=== PATIENT | female | born 1965 | race Caucasian/White ===

== ENCOUNTER 2019-06-29 07:18 | Day surgery (SDC) | payer OTHER ==
[~2019-06-29 07:18] MED LIST: Lactated Ringers 1,000 ML IV SCH; Sodium Chloride 0.9% 10 ML Syringe FLUSH PRN
[2019-06-29] MEDS ORDERED: Midazolam 1 MG/ML 2 ML SDV IV ONE (07:19)
[2019-06-29] MEDS ORDERED: Promethazine 25 MG/ML SDV ONE (07:19)
[2019-06-29] MEDS ORDERED: Lidocaine 1% with EPINEPHrine 1:100,000 20 ML MDV ONE ×2 (07:19→11:35)
[2019-06-29] MEDS ORDERED: Ondansetron 4 MG/2 ML SDV IV ONE (07:19)
[2019-06-29] MEDS ORDERED: Propofol 200 MG/20 ML SDV IV ONE (07:19)
[2019-06-29] MEDS ORDERED: fentaNYL 250 MCG/5 ML SDV IV ONE (07:19)
[2019-06-29] MEDS ORDERED: Succinylcholine 200 MG/10 ML MDV IV ONE (07:19)
[2019-06-29] MEDS ORDERED: Ketorolac 30 MG/ML SDV IVPUSH ONE (07:19)
[2019-06-29] MEDS ORDERED: Dexamethasone 4 MG/ML SDV IV ONE (07:19)
[2019-06-29] MEDS ORDERED: Clindamycin Phosphate 600 MG in Sodium Chloride 0.9% 100 ML IV ONE (11:07)
[2019-06-29] MEDS ORDERED: Lidocaine 1% with EPINEPHrine 1:100,000 30 ML MDV INJECT ONE ×2 (11:45→11:50)
[2019-06-29] MEDS ORDERED: Morphine 2 MG/ML Syringe IVPUSH PRN (13:17)
[2019-06-29] MEDS ORDERED: Sodium Chloride 0.9% 10 ML Syringe FLUSH PRN (13:20)
--- NOTE | 2019-06-29 16:49 | OR ---
DATE: 06/29/2019 PREOPERATIVE DIAGNOSIS: Umbilical hernia. POSTOPERATIVE DIAGNOSIS: Umbilical hernia. PROCEDURE: Open repair of umbilical hernia. ANESTHESIA: General. ESTIMATED BLOOD LOSS: Minimum. SPECIMEN: None. INDICATION FOR PROCEDURE: This 53-year-old female has symptomatic umbilical hernia. This is a quite large one on CT scan and contains preperitoneal and abdominal omental fat. No intestine is present. PROCEDURE IN DETAIL: After adequate preparation, a longitudinal incision was made infraumbilically and this was taken down through the subcutaneous tissue to expose the hernia sac. This was dissected free from the surrounding structures and the umbilical skin was peeled off the top end of the hernia sac. The margins of the fascia were incised so that the hernia could be reduced and then the defect, which measured about 2 to 2.5 cm, was closed using interrupted #1 Prolene sutures and this was reinforced using a double-stranded 0 PDS suture. The subcutaneous tissue was closed using 2-0 Vicryl suture and Monocryl was used for the skin. [facility] /[id number]
[2019-06-29] MEDS: Acetaminophen/oxyCODONE 325-5 MG Tab PO PRN (18:11)
[2019-06-30] MEDS: Acetaminophen/oxyCODONE 325-5 MG Tab PO PRN (07:12)
[2019-06-30 07:54] VITALS: BP 138/80; PULSE 81
--- NOTE | 2019-06-30 09:19 | PCM.SN ---
- Free Text/Narrative Note: Stable POD #1. Minimal pain. Wound with some redness\blisters from steri- strips. Will remove strips. PO tolerated OK. Ambulating without help. Can DC today. FU PCP or my clinic Aug 02 if needed. Percocet (#20) given for pain. Will need to be off work until Jul 19 otherwise no restrictions.
== END 2019-06-30 10:19 | disposition home or self-care (01) ==
LOC: DL.SDS 07:18 → EDSTATUS 09:00 → DL.MS 13:07 → DL.SDS 06-30 10:19
PROVIDERS: ATTEND Surgery
DX: K42.9 Umbilical hernia without obstruction or gangrene (principal); G40.909 Epilepsy, unspecified, not intractable, without status epilepticus; E66.01 Morbid (severe) obesity due to excess calories; Z68.43 Body mass index [BMI] 50.0-59.9, adult; Z88.0 Allergy status to penicillin; Z79.899 Other long term (current) drug therapy
CPT/HCPCS: 49585; 81025; A9270; J0330; J1100; J1885; J2250; J2405; J2550; J2704; J3010; J3490; J7050; J7120

== ENCOUNTER 2020-08-22 10:12 | Emergency (ER) | payer OTHER ==
[2020-08-22] MEDS ORDERED: Sodium Chloride 0.9% 10 ML Syringe FLUSH PRN (10:17)
--- NOTE | 2020-08-22 10:17 | EDM.PDOC ---
ED HPI GENERAL MEDICAL PROBLEM - General Chief Complaint: Chest Pain Stated Complaint: CHEST PAINS Time Seen by Provider: 08/22/20 10:16 Source of Information: Reports: Patient, Old Records, RN, RN Notes Reviewed History Limitations: Reports: No Limitations - History of Present Illness INITIAL COMMENTS - FREE TEXT/NARRATIVE: Pt presents to ER from home by POV with c/o waking this morning to find that she had chest pain. Pt reports an upper and left sided chest pressure with some aching, and an occasional sharper pain. She also reports feeling the need to belch to relieve the chest symptoms, and reports having a lot of stomach gas. Denies fever, chills, N/V, abdominal pain, back pain, radiating pain, palpitations, edema, cough, or shortness of breath. Pt was worried because she had the same symptoms in 06/2020 when she had a STEMI. Onset: Today Onset Date: 08/22/20 Onset Time: 08:00 (approx. time per pt.) Duration: Waxing/Waning Location: Reports: Chest Quality: Reports: Ache, Pressure, Sharp Severity: Moderate Improves with: Reports: None Worsens with: Reports: None Associated Symptoms: Reports: No Other Symptoms Left Chest Pain Score (Numeric/FACES): 1 - Related Data Allergies Allergy/AdvReac Type Severity Reaction Status Date / Time Penicillins Allergy Rash Verified 08/22/20 10:22 Home Meds: Home Meds Escitalopram [Lexapro] 20 mg PO DAILY 06/02/19 [History] lisinopriL [Lisinopril] 5 mg PO DAILY 06/02/19 [History] Albuterol [Proventil HFA] 1 - 2 puff INH ASDIRECTED 06/25/19 [History] Past Medical History - Past Health History Medical/Surgical History: Denies Medical/Surgical History HEENT History: Reports: None Cardiovascular History: Reports: CAD, Hypertension, [place] (Inferior STEMI July 05, 2020.) Respiratory History: Reports: None Gastrointestinal History: Reports: Other (See Below) Other Gastrointestinal History: UMBILICAL HERNIA Genitourinary History: Reports: None Musculoskeletal History: Reports: Back Pain, Chronic Neurological History: Reports: None Psychiatric History: Reports: Anxiety, Depression Endocrine/Metabolic History: Reports: Obesity/BMI 30+ Hematologic History: Reports: None Immunologic History: Reports: None Oncologic (Cancer) History: Reports: None Dermatologic History: Reports: Cellulitis - Infectious Disease History Infectious Disease History: Reports: Chicken Pox - Past Surgical History Head Surgeries/Procedures: Reports: None HEENT Surgical History: Reports: Tonsillectomy Cardiovascular Surgical History: Reports: Coronary Artery Stent Respiratory Surgical History: Reports: None GI Surgical History: Reports: None, Other (See Below) Endocrine Surgical History: Reports: None Neurological Surgical History: Reports: None Musculoskeletal Surgical History: Reports: None Oncologic Surgical History: Reports: None Dermatological Surgical History: Reports: None Social & Family History - Family History Family Medical History: Unobtainable - Tobacco Use Tobacco Use Status *Q: Never Tobacco User - Caffeine Use Caffeine Use: Reports: Soda Other Caffeine Use: AVERAGE OF 4-6 BOTTLES OF SODA POP DAILY ED ROS GENERAL - Review of Systems Review Of Systems: Comprehensive ROS is negative, except as noted in HPI. ED EXAM, GENERAL - Physical Exam Exam: See Below Exam Limited By: No Limitations General Appearance: Alert, No Apparent Distress, Obese Eye Exam: Bilateral Eye: Normal Inspection Nose: Normal Inspection, Normal Mucosa, No Blood Throat/Mouth: Normal Inspection, Normal Lips, Normal Voice, No Airway Com promise. No: Perioral Cyanosis Head: Atraumatic, Normocephalic Neck: Normal Inspection, Non-Tender, Full Range of Motion Respiratory/Chest: No Respiratory Distress, Lungs Clear, Normal Breath Sounds, No Accessory Muscle Use, Chest Non-Tender Cardiovascular: Normal Peripheral Pulses, Regular Rate, Rhythm, No Edema, No Gallop, No JVD, No Murmur, No Rub GI/Abdominal: Normal Bowel Sounds, Soft, Non-Tender, Other (Benign obese abdomen) Back Exam: Normal Inspection Extremities: Normal Inspection, Normal Range of Motion, Non-Tender, Normal Capillary Refill, No Pedal Edema Neurological: Alert, Oriented, CN II-XII Intact, Normal Cognition, Normal Gait, No Motor/Sensory Deficits Psychiatric: Normal Affect, Normal Mood Skin Exam: Warm, Dry, Intact, Normal Color, No Rash #1 Interpretation EKG Date: 08/22/20 Time: 10:24 Rhythm: Other (SR) Rate (Beats/Min): 61 [place]: Normal P-Wave: Present QRS: Other (Borderline low voltage in percordial leads) ST-T: Elevated (Slight ST elevation in inferior leads (>1mm).) QT: Normal Comparison: Change From Previous EKG (Prior EKG (2019) showed an in ferior STEMI.) EKG Interpretation Comments: Repeat EKG at 1430HRS: SR, Rate 64, unchanged from initial EKG earlier today. Course - Vital Signs Last Recorded V/S: Last Vital Signs Temp 96.5 F L 08/22/20 10:22 Pulse 65 08/22/20 10:22 Resp 18 08/22/20 10:22 BP 138/59 L 08/22/20 10:22 Pulse Ox 98 08/22/20 10:22 - Orders/Labs/Meds Orders: Active Orders 24 hr Category Date Time Status EKG 12 Lead [EKG Documentation Completion] [RC] STAT Care 08/22/20 10:17 Active EKG Documentation Completion [RC] ROUTINE Care 08/22/20 14:30 Active Peripheral IV Care [RC] . DIRECTED Care 08/22/20 10:18 Active Heart Healthy Diet [DIET] Diet 08/22/20 Lunch Active Sodium Chloride 0.9% [Saline Flush] Med 08/22/20 10:17 Active 10 ml FLUSH ASDIRECTED PRN Peripheral IV Insertion Adult [OM.PC] Stat Oth 08/22/20 10:18 Ordered Medication Orders Sodium Chloride (Saline Flush) 10 ml FLUSH ASDIRECTED PRN PRN Reason: Keep Vein Open Last Admin: 08/22/20 10:35 Dose: 10 ml Documented by: MARRY Labs: Laboratory Tests 08/22/20 08/22/20 08/22/20 Range/Units 10:32 10:32 10:32 WBC 8.4 (5.0-10.0) 10^3/uL RBC 4.64 (4.2-5.4) 10^6/uL Hgb 12.8 (12.0-16.0) g/dL Hct 40.9 (37.0-47.0) % MCV 88.1 (80-100) fL MCH 27.6 (27.0-34.0) pg MCHC 31.3 L (33.0-35.0) g/dL Plt Count 200 (150-450) 10^3/uL Neut % (Auto) 64.7 (42.2-75.2) % Lymph % (Auto) 25.0 (20.5-50.1) % [place] % (Auto) 7.4 (2-8) % Eos % (Auto) 2.7 (1.0-3.0) % Baso % (Auto) 0.2 (0.0-1.0) % PT 10.1 (9.0-12.0) SEC INR 1.1 (0.9-1.2) APTT 27.4 (22.0-34.0) SEC Sodium 142 (136-145) mmol/L Potassium 4.2 (3.5-5.1) mmol/L Chloride 104 (98-107) mmol/L Carbon Dioxide 31 (21-32) mmol/L Anion Gap 11.2 (7-13) mEq/L BUN 18 (7-18) mg/dL Creatinine 0.90 (0.55-1.02) mg/dL Est Cr Clr Drug Dosing 62.42 mL/min Estimated GFR (MDRD) > 60 BUN/Creatinine Ratio 20.0 (No establ ref range) Glucose 91 (74-99) mg/dL Calcium 8.7 (8.5-10.1) mg/dL Total Bilirubin 0.4 (0.2-1.0) mg/dL AST 14 L (15-37) U/L ALT 20 (14-59) U/L Alkaline Phosphatase 108 (46-116) U/L Troponin I < 0.017 (0.000-0.056) ng/mL B-Natriuretic Peptide 161 H (0-100) pg/ml Total Protein 6.5 (6.4-8.2) g/dL Albumin 3.2 L (3.4-5.0) g/dL Globulin 3.3 Albumin/Globulin Ratio 0.97 Amylase 35 (25-115) U/L Lipase 68 L (73-393) U/L /09/10 Range/Units 14:09 WBC (5.0-10.0) 10^3/uL RBC (4.2-5.4) 10^6/uL Hgb (12.0-16.0) g/dL Hct (37.0-47.0) % MCV (80-100) fL MCH (27.0-34.0) pg MCHC (33.0-35.0) g/dL Plt Count (150-450) 10^3/uL Neut % (Auto) (42.2-75.2) % Lymph % (Auto) (20.5-50.1) % [place] % (Auto) (2-8) % Eos % (Auto) (1.0-3.0) % Baso % (Auto) (0.0-1.0) % PT (9.0-12.0) SEC INR (0.9-1.2) APTT (22.0-34.0) SEC Sodium (136-145) mmol/L Potassium (3.5-5.1) mmol/L Chloride (98-107) mmol/L Carbon Dioxide (21-32) mmol/L Anion Gap (7-13) mEq/L BUN (7-18) mg/dL Creatinine (0.55-1.02) mg/dL Est Cr Clr Drug Dosing mL/min Estimated GFR (MDRD) BUN/Creatinine Ratio (No establ ref range) Glucose (74-99) mg/dL Calcium (8.5-10.1) mg/dL Total Bilirubin (0.2-1.0) mg/dL AST (15-37) U/L ALT (14-59) U/L Alkaline Phosphatase (46-116) U/L Troponin I < 0.017 (0.000-0.056) ng/mL B-Natriuretic Peptide (0-100) pg/ml Total Protein (6.4-8.2) g/dL Albumin (3.4-5.0) g/dL Globulin Albumin/Globulin Ratio Amylase (25-115) U/L Lipase (73-393) U/L Meds: Medications Generic Name Dose Route Start Last Admin Trade Name Freq PRN Reason Stop Dose Admin Sodium Chloride 10 ml 08/22/20 10:17 08/22/20 10:35 Saline Flush FLUSH 10 ml ASDIRECTED PRN Administration Keep Vein Open Discontinued Medications Generic Name Dose Route Start Last Admin Trade Name Freq PRN Reason Stop Dose Admin Aspirin 324 mg 08/22/20 10:21 08/22/20 10:34 Aspirin PO 08/22/20 10:22 324 mg ONETIME ONE Administration - Radiology Interpretation Free Text/Narrative:: [facility] Final Radiology Report Call: [phone] assistance Online chat: [email or web address] Name: ROSALIND BENAVIDES Age: 54Years F Date: 08/22/2020 SSN: -- : [id number] Study: CR CHEST 1V FRONTAL Requesting Physician: PHIL ACEVEDO Images: 1 Addl Studies: Provided Clinical History: chest pain Contrast: Contrast Medium: Contrast Amount: Contrast Method: CONFIDENTIALITY STATEMENT This report is intended only for use by the referring physician, and only in accordance with law. If you received this in error, call [phone]. Page 1 of 1 PROCEDURE INFORMATION: Exam: XR Chest, 1 View Exam date and time: 08/22/2020 10:39 AM Age: 54 years old Clinical indication: Chest pain; Type not specified TECHNIQUE: Imaging protocol: XR of the chest Views: 1 view. COMPARISON: CR Chest 1V Frontal 07/05/2020 9:01 AM FINDINGS: Lungs: Unremarkable. No consolidation. Pleural spaces: Unremarkable. No pleural effusion. No pneumothorax. Heart/Mediastinum: Unremarkable. No cardiomegaly. Bones/joints: Unremarkable. IMPRESSION: No acute findings. Thank you for allowing us to participate in the care of your patient. Dictated and Authenticated by: Jesica Kenney MD 08/22/2020 10:46 AM Central Time ([place] & [place]) Departure - Departure Time of Disposition: 14:59 Disposition: Home, Self-Care 01 Condition: Good Clinical Impression: Atypical chest pain Instructions: Nonspecific Chest Pain, Adult, [id number] Forms: ED Department Discharge Additional Instructions: Continue your current medications exactly as prescribed. Follow up in clinic with your primary doctor or forensic economist within the next week for recheck. Return to ER if worse at any time. Sepsis Event Note (ED) - Focused Exam Vital Signs: Vital Signs Temp Pulse Resp BP Pulse Ox 08/22/20 10:22 96.5 F L 65 18 138/59 L 98 - My Orders Last 24 Hours: My Active Orders 08/22/20 10:17 EKG 12 Lead [EKG Documentation Completion] [RC] STAT Sodium Chloride 0.9% [Saline Flush] 10 ml FLUSH ASDIRECTED PRN 08/22/20 10:18 Peripheral IV Care [RC] . DIRECTED Peripheral IV Insertion Adult [OM.PC] Stat 08/22/20 Lunch Heart Healthy Diet [DIET] 08/22/20 14:30 EKG Documentation Completion [RC] ROUTINE - Assessment/Plan Last 24 Hours: My Active Orders 08/22/20 10:17 EKG 12 Lead [EKG Documentation Completion] [RC] STAT Sodium Chloride 0.9% [Saline Flush] 10 ml FLUSH ASDIRECTED PRN 08/22/20 10:18 Peripheral IV Care [RC] . DIRECTED Peripheral IV Insertion Adult [OM.PC] Stat 08/22/20 Lunch Heart Healthy Diet [DIET] 08/22/20 14:30 EKG Documentation Completion [RC] ROUTINE
[2020-08-22] MEDS ORDERED: Aspirin 81 MG Tab.Chew PO ONE (10:21)
[2020-08-22 10:25] VITALS: BP 138/59; PULSE 65
--- NOTE | 2020-08-22 10:47 | CR ---
PROCEDURE INFORMATION: Exam: XR Chest, 1 View Exam date and time: 08/22/2020 10:39 AM Age: 54 years old Clinical indication: Chest pain; Type not specified TECHNIQUE: Imaging protocol: XR of the chest Views: 1 view. COMPARISON: CR Chest 1V Frontal 07/05/2020 9:01 AM FINDINGS: Lungs: Unremarkable. No consolidation. Pleural spaces: Unremarkable. No pleural effusion. No pneumothorax. Heart/Mediastinum: Unremarkable. No cardiomegaly. Bones/joints: Unremarkable. IMPRESSION: No acute findings.
[2020-08-22 10:56] LABS: PTT,PARTIAL THROMBOPLSTIN TIME 27.4 SEC (22.0-34.0)
[2020-08-22 10:59] LABS: ANION GAP 11.2 mEq/L (7-13); CHLORIDE,CL 104 mmol/L (98-107); SODIUM,NA 142 mmol/L (136-145)
== END 2020-08-22 15:15 | disposition home or self-care (01) ==
LOC: DL.ED 10:12
DX: R07.89 Other chest pain (principal); I25.10 Atherosclerotic heart disease of native coronary artery without angina pectoris; I10 Essential (primary) hypertension; I25.2 Old myocardial infarction; E66.9 Obesity, unspecified; Z68.43 Body mass index [BMI] 50.0-59.9, adult; Z88.0 Allergy status to penicillin; Z79.899 Other long term (current) drug therapy
CPT/HCPCS: 36415; 71045; 80053; 82150; 83690; 83880; 84484; 85025; 85610; 85730; 93005; 99285; A9270; 93010; 99284

== ENCOUNTER 2023-06-02 18:38 | Emergency (ER) | payer MEDICAID ==
[2023-06-02 19:01] VITALS: BP 150/90; PULSE 73
[2023-06-02] MEDS ORDERED: Acetaminophen 500 MG Tab PO ONE (19:29)
[2023-06-02] MEDS ORDERED: Take Home: Acetaminophen/HYDROcodone 325-5 MG, 5 Tab Pack PO ONE (20:57)
== END 2023-06-02 21:03 | disposition home or self-care (01) ==
LOC: DL.ED 18:38
DX: S52.124A Nondisplaced fracture of head of right radius, initial encounter for closed fracture (principal); S80.02XA Contusion of left knee, initial encounter; I10 Essential (primary) hypertension; I25.10 Atherosclerotic heart disease of native coronary artery without angina pectoris; E66.9 Obesity, unspecified; Z95.5 Presence of coronary angioplasty implant and graft; Z79.899 Other long term (current) drug therapy; Z88.0 Allergy status to penicillin; W10.8XXA Fall (on) (from) other stairs and steps, initial encounter
CPT/HCPCS: 29125; 73090-RT; 99283; 99284; A9270-GY